=== PATIENT | male | born 1950 | race Caucasian/White ===

== ENCOUNTER → 2017-10-29 | Outpatient (CLI) | payer OTHER ==
[~2017-10-29] VITALS: Ht 177.8 cm; Wt 95.6 kg
[~2017-10-29] MED LIST: ALLOPURINOL 10100 M1 PO; ASPIR 8181 MG PO; CELEXA10 MG PO; CYCLOBENZAPRINE5 MG PO; HYDROCODONE-APA1 TA1 PO; LIPITOR10 MG PO; MIRALAX17 GM PO; MOVANTIK25 MG PO; MS CONTIN15 MG PO; NEURONTIN 300300 M1 PO; PRILOSEC20 MG PO; PROLIA60 MG/1 ML SQ; TRIAMTERENE/HCT1 CA1 PO; TUMS PO; ULTRAM50 MG PO; VITAMIN D3400 UNIT PO; ZOLPIDEM TARTRA10 MG PO
--- NOTE | ~2017-10-29 | P ---
[facility] [place] [address] PROCEDURE REPORT Name: TEO CLEMONS CAMBRIDGEPORT Room #: [facility] Center[id number] Admission: 10/29/17 Attend Phys: Virgil Sarabia DO Discharge: Date of : 52 Report #: [id number] THIS REPORT FOR: //name// CC: Virgil Peterson MD DATE OF SERVICE: 10/29/2017 DESCRIPTION OF PROCEDURE: C7-T1 cervical epidural steroid injection under fluoroscopic guidance. This is the first procedure of the first series that the patient is undergoing. After obtaining written consent, the patient was taken back to the fluoroscopy suite and placed in a prone position with separate pillows under chest and forehead to decrease cervical lordosis. The skin overlying the cervical area was prepped and draped in an aseptic fashion. The C7-T1 vertebral interspace was identified by AP fluoroscopy. The skin and subcutaneous tissue overlying the target site of injection was anesthetized using 3 mL of 1% lidocaine. A 20-gauge Tuohy needle was advanced under fluoroscopic guidance toward the epidural space using a midline approach. The epidural space was identified using a loss of resistance to air technique. After negative aspiration for heme or cerebrospinal fluid, a total of 1 mL of Omnipaque was injected. A cervical epidurogram was confirmed using AP and oblique fluoroscopy. After negative aspiration for heme or cerebrospinal fluid, 5 mL of a solution containing 2 mL 40 mg per mL, 80 mg total triamcinolone, 3 mL lidocaine 1% was injected in increments. Contrast spread was noted from posterior epidural space. The needle was then retracted approximately assisted and the needle track was flushed with 1 mL of 1% lidocaine. There were no apparent new sensory deficits in the upper extremities present following the procedure. A sterile bandage was placed over the injection site. The heart rate, pulse oximetry and blood pressure were continuously monitored after the procedure. There were no apparent complications. The patient tolerated the procedure well and was carefully escorted in the recovery room in stable condition. After meeting discharge criteria, the patient was discharged home. <ELECTRONICALLY SIGNED> By: Virgil Sarabia DO 11/04/17 0750 [id number] Virgil Sarabia DO /nt
--- NOTE | ~2017-10-29 | HPC ---
[facility] [address] [place] [address] PAIN MANAGEMENT CONSULTATION Name: TEO CLEMONS Room #: REG CLPhyllis Caceres.#: [id number] Admission: 10/29/17 Attend Phys: Virgil Sarabia DO Discharge: Date of : 52 Report #: [id number] THIS REPORT FOR: //name// CC: Virgil Peterson MD DATE OF SERVICE: 10/29/2017 CHIEF COMPLAINT: Neck pain, right upper extremity pain with paresthesias, bilateral upper neck pain. HISTORY OF PRESENT ILLNESS: As you know, the patient is a 67-year-old male who has been referred back to our clinic by his primary care physician to address suspected cervical radiculopathy. The patient indicates pain begins in the neck, shoots all the way down into his arms on both right and left side. He is also experiencing pain that radiates from the neck up towards the head. He indicates no injury, no trauma that may have led to symptoms. He describes the pain as chronic in nature, describes pain as burning, shooting, electrical like tingling, aching and headache like. He places current pain score 5/10, states that swallowing food, looking up and down, driving and weather changes tend to exacerbate symptoms. Medications, heat and cold compresses tend to improve pain. The patient has been referred back to our clinic to trial cervical epidural injection under fluoroscopic guidance to determine if this would improve his overall pain. ALLERGIES: LISINOPRIL, VALSARTAN, CELECOXIB, DULOXETINE. CURRENT MEDICATIONS: Citalopram 10 mg once a day, MiraLax 17 grams per day, allopurinol 100 mg once a day, zolpidem 10 mg p.o. at bedtime, hydrochlorothiazide/triamterene 37.5/25 one tab per day, Prolia every 6 months, omeprazole 20 mg per day, cyclobenzaprine 5 mg 3 times a day, atorvastatin 10 mg per day, aspirin 81 mg per day. SOCIAL HISTORY: The patient denies tobacco, IV or illicit drug use. Denies any chronic alcohol use. He is unaccompanied today. IMAGING: MRI cervical spine obtained 10/20/2017 shows multilevel degenerative changes, uncovertebral and facet arthropathy, disk osteophyte complex at C5-C6, C6-C7 resultant in moderate central canal stenosis and moderate to severe foraminal stenosis. PQRS: The patient has known osteoarthritis. No rheumatoid arthritis. He places current pain score 5/10. He indicates he is not a fall risk, but did have a fall within the last 3 months. He is not on blood thinners. He is treated for hypertension. He is not on chronic opioids. He has a low opioid [facility] [address] [place] [address] PAIN MANAGEMENT CONSULTATION Name: TEO CLEMONS Room #: REG CLPhyllis Rodriguez#: [id number] Admission: 10/29/17 Attend Phys: Virgil Sarabia DO Discharge: Date of : 52 Report #: [id number] risk assessment. His functional assessment 39/70 indicating moderate interference of daily activities secondary to pain. PHYSICAL EXAMINATION: VITAL SIGNS: Blood pressure 113/87, pulse 73, respiratory rate 16, unlabored. The patient is 97% on room air. Height 5 feet 10 inches tall, weight 210.8 pounds, BMI calculated 30.2. GENERAL: Well-developed, well-nourished, well-hydrated, 67-year-old male. He appears stated age, placing current pain score at approximately 5/10. HEENT: Normocephalic, atraumatic. Pupils equal, round, reactive to light. Extraocular muscles are intact. Sclerae nonicteric without injection. NEUROLOGIC: Cranial nerves 2-12 grossly intact. Speech is fluent. The patient deemed good historian. LUNGS: Clear. No wheeze, rhonchi or rales. CARDIOVASCULAR: Regular. No appreciable gallop, no rub. ABDOMEN: Soft, nontender. EXTREMITIES: Show no clubbing, no cyanosis, no edema. MUSCULOSKELETAL: Upper extremity strength is symmetrical 5/5, muscle bulk and tone equal and symmetrical. Spurling's test is positive on the right, equivocal left. Upper extremity deep tendon reflexes are symmetrical at biceps, brachioradialis and triceps. Cervical provocation testing met with increasing pain at approximately 40 degrees rotation to the left, 45-50 degrees rotation right. ASSESSMENT: 1. Cervical radiculopathy. 2. Neural foraminal stenosis of the cervical spine. 3. Cervical spondylosis with radiculopathy. 4. Cervical spinal stenosis. 5. Chronic intractable pain. PLAN: 1. The patient has been referred back to our clinic to discuss treatment options for cervical radicular symptoms. It does appear by physical exam that the patient is suffering from cervical radicular symptoms involving mainly the right upper extremity, but also transient left upper extremity symptoms. This is likely due to the moderate spinal stenosis noted at the C5-C6, C6-C7 levels. He also has foraminal stenosis that is moderate to severe at both levels. We have discussed with the patient the treatment options after reviewing the patient's MRI for over 22 minutes of time. We discussed the following for treatment: We discussed physical therapy, stretching exercises and traction techniques. We discussed medication management with the addition of a neuropathic pain medication to assist in pain control in conjunction with his current medications. We discussed the cervical epidural injection for which the patient [facility] [address] [place] [address] PAIN MANAGEMENT CONSULTATION Name: TEO CLEMONS Room #: REG CLI MannyFern.#: [id number] Admission: 10/29/17 Attend Phys: Virgil Sarabia DO Discharge: Date of : 52 Report #: [id number] was referred and surgical options. After reviewing risks and benefits of all proposed treatment options, the patient chose to undergo the cervical epidural injection. The patient was advised of the risks and the benefits of a cervical epidural injection. These risks include but are not necessarily limited to bleeding, bruising, infection, worsening pain, no relief of pain, also risk of temporary or permanent muscle weakness, temporary or permanent nerve damage, possible paralysis, post-dural puncture headache and . The patient states he understood and wished to proceed. 2. No medication changes made at today's visit. The patient to continue current medical therapy as previously prescribed. The patient to return to our clinic on an as needed basis for the next in the series of cervical epidural injections. 3. We wish to thank Dr. Peterson for the re-referral this patient to our clinic. We will keep you apprised of his response to treatment as we address his cervical radicular symptoms. Again, we wish to thank you for the opportunity to see the patient back in re-referral. <ELECTRONICALLY SIGNED> By: Virgil Sarabia DO 11/04/17 0750 [id number] 1316 Virgil Sarabia DO /stephanie
[2017-10-29 09:42] VITALS: BP 113/87
== END | disposition home or self-care (01) ==
LOC: PAIN 06:56
DX: M40.40 Postural lordosis, site unspecified (principal); M19.90 Unspecified osteoarthritis, unspecified site